=== PATIENT | male | born 1985 | race Caucasian/White ===

== ENCOUNTER 2019-09-17 15:42 | Emergency (ER) | payer OTHER ==
[~2019-09-17] VITALS: Ht 165.1 cm; Wt 68.0 kg
--- NOTE | 2019-09-17 15:48 | NUR ---
PT AAOX4. AMBULATORY WITH STEADY GAIT. BIB NUTRITION SPECIALIST C/O HEADACHE S/P USE OF FORCE. PT PALCED ON MONITOR AND PULSE OX. NO ACUTE DISTRESS NOTED. NO NEURO DEFICIT. VSS.
[2019-09-17 16:38] VITALS: BP 132/76
--- NOTE | 2019-09-17 16:38 | NUR ---
Patient discharged to home in stable condition. Written and verbal after care instructions given. Patient verbalizes understanding of instruction. PT ambulatory with a steady gait. In custody.
== END 2019-09-17 16:38 ==
LOC: ER 15:44
DX: S06.0X0A Concussion without loss of consciousness, initial encounter (principal); W18.39XA Other fall on same level, initial encounter; Y93.89 Activity, other specified; Y92.89 Other specified places as the place of occurrence of the external cause; Y99.8 Other external cause status
CPT/HCPCS: 70450-TC